=== PATIENT | male | born 1960 | race Caucasian/White ===

== ENCOUNTER 2020-12-28 15:25 | Outpatient (CLI) | payer MEDICARE, SELFPAY ==
--- NOTE | ~2020-12-28 | US_ITS ---
EXAMINATION: US carotid duplex BI DATE: 12/28/2020 16:43 INDICATION: Carotid bruit. Vascular disease. TECHNIQUE: Grayscale, color Doppler, and pulsed Doppler images of the cervical carotid arteries were obtained. The degree of vessel stenosis is placed in one of the following categories: normal, <50%, 5 0-69%, >=70% but less than near-occlusion, near-occlusion, or total occlusion. Note that percent sten osis relative to normal distal artery lumen diameter is indirectly measured from velocity measurement s as described by Rahul, et al. Radiology 2003; [id number]:[id number]. Notes: Normal: Peak systolic velocity <125 centimeters/sec and no plaque <50%. Peak systolic velocity <125 ( EDV <40; ICA/CCA PSV ratio <2.0; used these factors only a tandem lesions or low cardiac output or co ntralateral disease) 50-69 %: PSV 125-230 (EDV 40-100; ratio 2-4) >= 70% but less than near occlusion: PSV greater than 230 (EDV > 100; ratio> 4.0) Near Occlusion: PSV that is variable; markedly narrowed lumen Occlusion: Absent flow on color/spectral Doppler and no lumen on devine scale. COMPARISON: None. FINDINGS: RIGHT: The right common carotid artery (CCA) peak systolic velocity (PSV) is 89 cm/s. The right internal car otid artery (ICA) PSV is 157 cm/s. The right ICA end-diastolic velocity (EDV) is 42 cm/s. The right I CA/CCA PSV ratio is 1.8. The external carotid artery (ECA) PSV is 127 cm/s. There is retrograde flow in the right vertebral artery. LEFT: The left CCA PSV is 70 cm/s. The left ICA PSV is 98 cm/s. The left ICA EDV is 38 cm/s. The left ICA/C CA PSV ratio is 1.4. The ECA PSV is 155 cm/s. There is antegrade flow in the left vertebral artery. IMPRESSION: 1. 50-69% stenosis in the right internal carotid artery by sonographic criteria. 2. Less than 50% stenosis in the left internal carotid artery by sonographic criteria. 3: Retrograde flow in the right vertebral artery. Reviewed, dictated and finalized at location A. IMPRESSION: 1. 50-69% stenosis in the right internal carotid artery by sonographic criteria . 2. Less than 50% stenosis in the left internal carotid artery by sonographic cr iteria. 3: Retrograde flow in the right vertebral artery.
== END 2020-12-28 15:26 | disposition home or self-care (01) ==
PROVIDERS: Visit Provider Psychiatry & Neurology Neurology
DX: I65.23 Occlusion and stenosis of bilateral carotid arteries (principal)
CPT/HCPCS: 93880

== ENCOUNTER 2021-05-03 14:58 | Outpatient (CLI) | payer MEDICARE, SELFPAY ==
--- NOTE | ~2021-05-03 | MR_ITS ---
EXAMINATION: MR lumbar spine wo con EXAM DATE: 05/03/2021 15:45 INDICATION: M54.16 - Radiculopathy, lumbar region. TECHNIQUE: Multi-sequential, multiplanar MR images of the lumbar spine were obtained without contrast . Sagittal T1, T2, T2 fat saturation images. Axial T2 weighted images. There is no prior study for comparison. FINDINGS: There is an incompletely imaged abdominal aortic aneurysm, at least 5.5 cm in diameter, siz e could indicate prophylactic treatment candidate. A CT angiogram abdomen and pelvis with contrast is recommended for better characterization, along with vascular consult. Left renal fluid signal intens ity lesions consistent with cysts. There is mild to moderate L5-S1 disc disease, mild at the L2-L5 levels. The vertebral bodies are alig beata in the AP dimension. The conus medullaris terminates at the L1/2 level and has normal signal inte nsity and morphology. There are no suspicious marrow signal abnormalities. Level by level evaluation: T12-L1: Disc does not extend beyond the endplate margin. Facet arthropathy: Mild. Neural foraminal stenosis: No stenosis. Central canal stenosis: No stenosis. L1-L2: Disc does not extend beyond the endplate margin. Facet arthropathy: Mild. Neural foraminal stenosis: No stenosis. Central canal stenosis: No stenosis. L2-L3: There is a mild to moderate diffuse disc bulge. Facet arthropathy: Moderate. Neural foraminal stenosis: Mild bilateral. Central canal stenosis: Mild. L3-L4: There is a mild to moderate diffuse disc bulge. Facet arthropathy: Mild to moderate. Neural foraminal stenosis: Mild bilateral. Central canal stenosis: Mild. L4-L5: There is a mild to moderate diffuse disc bulge. Facet arthropathy: Mild to moderate. Neural foraminal stenosis: Mild to moderate left, mild right. Central canal stenosis: Mild. L5-S1: There is a mild to moderate diffuse disc bulge. Facet arthropathy: Mild. Neural foraminal stenosis: Mild. Central canal stenosis: Mild bilateral. IMPRESSION: 1. Incidental abdominal aortic aneurysm; vascular consult and CT angiogram abdomen pelvis with contr ast recommended. 2. Mild to moderate lumbar spondylosis. Reviewed, dictated and finalized at location A. IMPRESSION: 1. Incidental abdominal aortic aneurysm; vascular consult and CT angiogram abd omen pelvis with contrast recommended. 2. Mild to moderate lumbar spondylosis.
== END 2021-05-03 14:59 | disposition home or self-care (01) ==
LOC: ANHIMG 15:09
PROVIDERS: PCP Psychiatry & Neurology Neurology; Visit Provider Psychiatry & Neurology Neurology
DX: M47.26 Other spondylosis with radiculopathy, lumbar region (principal); I71.4 Abdominal aortic aneurysm, without rupture
CPT/HCPCS: 72148